=== PATIENT | female | born 1995 | race Asian ===

== ENCOUNTER 2024-04-27 14:05 | Emergency (ER) | payer OTHER ==
[~2024-04-27] VITALS: Ht 165.1 cm; Wt 87.0 kg
[2024-04-27 14:15] VITALS: BP 122/80; PULSE 80; RESP 16; TEMP 98.5; O2SAT 99
== END 2024-04-27 15:51 | disposition left against medical advice (07) ==
LOC: ER 14:05
DX: F41.9 Anxiety disorder, unspecified (principal); Z53.21 Procedure and treatment not carried out due to patient leaving prior to being seen by health care provider